=== PATIENT | male | born 1955 | race Caucasian/White ===

== ENCOUNTER → 2017-07-21 | Outpatient (CLI) | payer BC ==
--- NOTE | 2017-07-21 11:23 | XR ---
EXAMINATION TYPE: XR cervical spine comp DATE OF EXAM: 07/21/2017 COMPARISON: NONE HISTORY: Neck pain TECHNIQUE: Four views are submitted. FINDINGS: The odontoid is intact. There are no compression deformities. The prevertebral soft tissue structur es are within normal limits. Multilevel facet arthropathy seen with multilevel degenerative disc dis ease. Hypertrophic changes C4-5 and C5-C6. Foraminal encroachment level C4-5 and C5-C6. IMPRESSION: 1. Multilevel degenerative disc disease and foraminal encroachment correlate with MRI.
--- NOTE | 2017-07-21 11:44 | XR ---
EXAMINATION TYPE: XR knee complete bilateral DATE OF EXAM: 07/21/2017 COMPARISON: NONE HISTORY: Bilateral knee pain TECHNIQUE: Standing views of the bilateral knees are examined in the AP projection. Oblique views and lateral views were obtained with nonweightbearing imaging. FINDINGS: No joint effusions are evident. Patellofemoral joint spaces are preserved. Medial and lateral compart ments on the nonweightbearing images appear normal. Joint compartments appear preserved on weightbear ing images. IMPRESSION: 1. Normal bilateral knees.
== END | disposition home or self-care (01) ==
LOC: RADXRMAIN 10:49
PROVIDERS: ATTEND Family Medicine
DX: M50.30 Other cervical disc degeneration, unspecified cervical region (principal); M25.561 Pain in right knee; M25.562 Pain in left knee
CPT/HCPCS: 72050

== ENCOUNTER 2017-08-19 07:40 | Day surgery (SDC) | payer BC ==
[2017-08-15 09:49] VITALS: BMI 26.6
[~2017-08-19 07:40] MED LIST: LACTATED RINGERS 1,000 ML IV SCH
[2017-08-19 07:59] VITALS: TEMP 97.9
[2017-08-19] MEDS ORDERED: LIDOCAINE 1% 20 ML VIAL (10MG/ML) FOR IV START INTRADERMA ONE (08:08)
[2017-08-19] MEDS ORDERED: LIDOCAINE 1% INJ 10MG/ML (20 ML MDV) ONE (08:57)
[2017-08-19] MEDS ORDERED: MIDAZOLAM 2 MG/2 ML VIAL ONE (08:57)
[2017-08-19] MEDS ORDERED: fentaNYL (PF) 50 MCG/ML 2 ML AMP ONE (08:57)
[2017-08-19] MEDS ORDERED: PROPOFOL 10 MG/ML 20 ML VIAL IV ONE (08:57)
--- NOTE | 2017-08-19 09:18 | P.GSHP ---
History of Present Illness H&P Date: 08/19/17 Chief Complaint: Screening colonoscopy 's is a 62-year-old male referred from Dr. Moise. Patient presents today for screening colonoscopy. He denies a significant GI complaints. He's never had a previous colonoscopy Past Medical History Past Medical History: Asthma, GERD/Reflux Additional Past Medical History / Comment(s): postive stool for blood, past hx of asthma History of Any Multi-Drug Resistant Organisms: None Reported Past Surgical History: Hernia Repair, Orthopedic Surgery Additional Past Surgical History / Comment(s): rotatator cuff Past Anesthesia/Blood Transfusion Reactions: No Reported Reaction Smoking Status: Never smoker - Past Family History Mother Family Medical History: No Reported History Medications and Allergies Home Medications Medication Instructions Recorded Confirmed Type Aspirin [Adult Low Dose Aspirin EC] 81 mg PO DAILY 08/15/17 08/15/17 History Dextroamphetamine/Amphetamine 30 mg PO DAILY 08/15/17 08/15/17 History [Adderall] Multivitamins, Thera [Multivitamin 1 tab PO DAILY 08/15/17 08/15/17 History (formulary)] Zegerid 1 tab PO DAILY 08/15/17 History Allergies Allergy/AdvReac Type Severity Reaction Status Date / Time No Known Allergies Allergy Verified 08/19/17 07:56 Surgical - Exam Vital Signs Temp Pulse Resp BP Pulse Ox 97.9 F 77 16 131/85 98 08/19/17 07:58 08/19/17 07:58 08/19/17 07:58 08/19/17 07:58 08/19/17 07:58 - General well developed, no distress - Eyes PERRL - ENT normal pinna - Neck no masses - Respiratory normal expansion - Cardiovascular Rhythm: regular - Abdomen Abdomen: soft, non tender Assessment and Plan Plan: We'll perform screening colonoscopy.
--- NOTE | 2017-08-19 09:36 | P.OP ---
Date of Procedure: 08/19/17 Preoperative Diagnosis: Screening colonoscopy Postoperative Diagnosis: Left colon polyp Procedure(s) Performed: Colonoscopy Anesthesia: MAC Surgeon: Raffi Merchant Pathology: other (Left colon polyp) Condition: stable Disposition: PACU Description of Procedure: The patient's placed on the endoscopy table in the lateral position. He received IV sedation. Digital rectal exam was performed which revealed no abnormalities. The flexible colonoscope then placed patient anus passed throughout the entire colon. The ileocecal valve was visualized. The cecum, ascending and transverse colon appeared normal. In the descending colon there was a peduncular polyp and this was removed with the snare. The remainder the descending and sigmoid colon appeared normal. Scope was then brought back the rectum and this appeared normal. Scope was withdrawn for patient.
[2017-08-19 09:41] VITALS: PULSE 74
[2017-08-19 09:55] VITALS: BP 117/81; RESP 18
== END 2017-08-19 10:28 | disposition home or self-care (01) ==
LOC: ORWHC2ENDO 07:40
PROVIDERS: ATTEND Surgery
DX: Z12.11 Encounter for screening for malignant neoplasm of colon (principal); D12.4 Benign neoplasm of descending colon; K21.9 Gastro-esophageal reflux disease without esophagitis; Z79.82 Long term (current) use of aspirin; Z79.899 Other long term (current) drug therapy
CPT/HCPCS: 45385; 88305; J2250; J2001; J3010; J2704

== ENCOUNTER → 2021-06-22 | Outpatient (CLI) | payer MEDICARE ==
--- NOTE | 2021-06-22 10:36 | XR ---
EXAMINATION TYPE: XR knee complete RT DATE OF EXAM: 06/22/2021 COMPARISON: NONE HISTORY: Pain TECHNIQUE: Three views are submitted. FINDINGS: Joint spaces are preserved. Osseous structures are intact. No acute fracture seen. Small amount of fluid in the suprapatellar bursa. Mild generalized osteopenia. Tiny spurs are seen along the upper m argin of the patella and there is mild narrowing of the joint space. No erosion. IMPRESSION: 1. No acute fracture or dislocation. Small amount of fluid in the suprapatellar bursa can occasional ly be associated with internal derangement the knee. Related with MRI as clinically warranted. 2. Mild arthropathy
== END | disposition home or self-care (01) ==
LOC: RADXRMAIN 10:13
PROVIDERS: ATTEND Family Medicine
DX: M12.861 Other specific arthropathies, not elsewhere classified, right knee (principal)

== ENCOUNTER → 2022-08-21 | Outpatient (CLI) | payer MEDICARE ==
--- NOTE | 2022-08-22 14:52 | CT ---
EXAMINATION TYPE: CT chest wo con CT DLP: 1235.90 mGycm, Automated exposure control for dose reduction was used. DATE OF EXAM: 08/21/2022 7:01 PM COMPARISON: Chest radiograph 08/13/2022. CLINICAL INDICATION:Male, 67 years old with history of J98.4 DISORDER OF LUNG, restrictive lung disea se and pneumonia TECHNIQUE: Multiple axial images were obtained through the chest. Sagittal and coronal reformats were created for review. Contrast used: none. Oral contrast used: none. FINDINGS: LUNGS/ PLEURA: There is no evidence of interstitial thickening, significant groundglass opacity, brandon ycombing or architectural distortion in the lungs. No bronchiectasis. No acute area of infiltrative o r consolidative change. There is mild centrilobular emphysema greatest in the upper lung zones. No si gnificant air trapping on expiratory views. AIRWAY: Patent and unremarkable. HEART: Mild cardiomegaly with associated coronary artery atherosclerosis. MEDIASTINUM: No gross evidence of adenopathy. There is a moderate hiatal hernia present. VASCULATURE: No aortic aneurysm. MUSCULOSKELETAL: No acute osseous abnormalities SOFT TISSUES/LYMPH NODES: Unremarkable. LOWER NECK: No significant findings. UPPER ABDOMEN: No significant findings. Small splenule is present. IMPRESSION: 1. No evidence for interstitial lung disease or acute process within the chest. 2. Moderate hiatal hernia. 3. Moderate coronary artery atherosclerosis.22
== END | disposition home or self-care (01) ==
LOC: RADCTMAIN 18:11
PROVIDERS: ATTEND Internal Medicine
DX: K44.9 Diaphragmatic hernia without obstruction or gangrene (principal); I25.10 Atherosclerotic heart disease of native coronary artery without angina pectoris
CPT/HCPCS: 71250

== ENCOUNTER 2023-10-14 11:37 | Day surgery (SDC) | payer MEDICARE ==
[2023-10-13 11:38] VITALS: BMI 27.3
[2023-10-14 13:27] VITALS: TEMP 97
[2023-10-14] MEDS ORDERED: PROPOFOL 10 MG/ML 20 ML VIAL IV ONE (13:49)
--- NOTE | 2023-10-14 14:07 | P.PCN ---
Date of Procedure: 10/14/23 Procedure(s) Performed: Brief history: Patient is a pleasant scheduled for an elective upper endoscopy as well as colonoscopy as a part of evaluation of GERD and screening for colon cancer Procedure performed: Esophagogastroduodenoscopy with biopsy Colonoscopy with biopsy Preoperative diagnosis: GERD Screening for colon cancer Anesthesia: MAC Procedure: After informed consent was obtained from the patient was brought into the endoscopy unit and IV sedation was administered by anesthesia under continuous monitoring. Initially upper endoscopy was done. The Olympus GF 160 video endoscope was inserted inserted into the mouth and esophagus intubated without any difficulty and was gradually advanced into the stomach and duodenum and carefully examined. The bulb and second part of the duodenum appeared normal. The scope was then withdrawn into the stomach adequately insufflated with air and upon careful examination the antrum and body, cardia and fundus appeared normal. Gastric polyps noted in the body the stomach which were biopsied. The scope was then withdrawn into the esophagus. The GE junction was located at 35 cm to the incisors. Small to moderate size hiatal hernia noted. The distal esophagus was slightly tortuous and there was relative pooling of secretions in the distal esophagus. The GE junction appeared regular r with no erythema erosions or ulcerations. Rest of the esophagus appeared normal. Patient tolerated the procedure well. At this time the patient continued to remain sedation. Initial digital rectal examination was normal. Olympus CF 160 video colonoscope was then inserted into the rectum and gradually advanced to the cecum without any difficulty. Careful examination was performed as the scope was gradually being withdrawn. The prep was excellent. The cecum, ascending colon, transverse colon, descending colon, appeared normal. The sigmoid: There was a 4 mm polyp that was removed by cold biopsy. Small diverticula seen. Rest of thesigmoid colon and rectum appeared normal. Retroflexion was performed in the rectum and no lesions were noted. Patient tolerated the procedure well. Impression: 1. Upper endoscopy revealed small to moderate size hiatal hernia and small gastric polyps 2. Colonoscopy revealed 5 mm; polyp status post cold biopsy and scattered sigmoid diverticulosis Recommendations: Findings of this examination were discussed with the patient as well ashis family. He was advised to continue with zegrid and Pepcid daily. Follow with the biopsy results and if the biopsy with adenoma he can have a repeat colonoscopy in 5 years.
[2023-10-14 14:16] VITALS: RESP 16
[2023-10-14 14:39] VITALS: BP 122/73; PULSE 89
== END 2023-10-14 14:58 | disposition home or self-care (01) ==
LOC: ORWHC2ENDO 11:37
PROVIDERS: ATTEND Internal Medicine Gastroenterology
DX: Z12.11 Encounter for screening for malignant neoplasm of colon (principal); D12.5 Benign neoplasm of sigmoid colon; K31.7 Polyp of stomach and duodenum; K44.9 Diaphragmatic hernia without obstruction or gangrene; K57.30 Diverticulosis of large intestine without perforation or abscess without bleeding; J45.909 Unspecified asthma, uncomplicated; M19.90 Unspecified osteoarthritis, unspecified site; K21.9 Gastro-esophageal reflux disease without esophagitis; Z79.899 Other long term (current) drug therapy
CPT/HCPCS: 88305; 45380; 43239; J2704

== ENCOUNTER 2023-11-15 18:50 | Emergency (ER) | payer MEDICARE ==
[2023-11-15 19:24] VITALS: BP 136/79; PULSE 123; RESP 22; TEMP 98.5
--- NOTE | 2023-11-15 20:42 | XR ---
EXAMINATION TYPE: XR chest 2V DATE OF EXAM: 11/15/2023 COMPARISON: 07/04/2022 HISTORY: 68-year-old male with cough TECHNIQUE: PA and lateral views FINDINGS: Heart normal size. Aorta within normal limits. Mild interstitial prominence. No consolidation or pleu ral effusion. IMPRESSION: Mild interstitial prominence may reflect bronchitis or asthma. No focal infiltrate seen.
== END 2023-11-15 22:15 | disposition left against medical advice (07) ==
LOC: EC 18:50
DX: Z53.21 Procedure and treatment not carried out due to patient leaving prior to being seen by health care provider (principal); Z20.822 Contact with and (suspected) exposure to COVID-19
CPT/HCPCS: 71046; 87636; 99499

== ENCOUNTER → 2023-12-16 | Outpatient (CLI) | payer MEDICARE ==
--- NOTE | 2023-12-16 11:12 | XR ---
EXAMINATION TYPE: XR chest 2V DATE OF EXAM: 12/16/2023 COMPARISON: 11/15/2023 TECHNIQUE: PA and lateral views submitted. HISTORY: Cough FINDINGS: The lungs are clear and there is no pneumothorax, pleural effusion, or focal pneumonia. Heart size normal and no overt failure. Osseous structures demonstrate hypertrophic and degenerative changes of the spine. Tortuosity of the thoracic aorta. Small hiatal hernia is suspected. IMPRESSION: 1. No acute process.
== END | disposition home or self-care (01) ==
LOC: RADXRMAIN 10:55
PROVIDERS: ATTEND Family Medicine
DX: R05.3 Chronic cough (principal)
CPT/HCPCS: 71046